=== PATIENT | male | born 1970 | race Caucasian/White ===

== ENCOUNTER 2018-12-09 12:07 | Inpatient (IN) | payer OTHER ==
[~2018-12-09] VITALS: Ht 175.3 cm; Wt 96.3 kg
[2018-12-09 13:37] VITALS: BP 117/79; PULSE 85; TEMP 97.2
[2018-12-09] MEDS ORDERED: HUMALOG100 U/ML SQ (13:45)
[2018-12-09] MEDS ORDERED: LANTUS100 U/ML SQ (13:46)
[2018-12-09] MEDS ORDERED: LIDODERM 5% PATC1 EA TP (13:47)
[2018-12-09] MEDS ORDERED: GLUCOPHAGE1000 MG PO (13:48)
[2018-12-09] MEDS ORDERED: LOPRESSOR 225 MG/TAB PO (13:49)
[2018-12-09] MEDS ORDERED: PEXEVA20 MG PO (13:50)
[2018-12-09] MEDS ORDERED: BACTRIM DS 8001 TAB PO (13:51)
[2018-12-09] MEDS ORDERED: TYLENOL 325MG325 MG PO (13:52)
[2018-12-09] MEDS ORDERED: XANAX .25M0.25 MG/TA PO (13:53)
[2018-12-09] MEDS ORDERED: MELATONIN5 M1 SL (13:54)
[2018-12-09] MEDS ORDERED: ROXICODONE 55 MG/TAB PO (13:55)
[2018-12-09] MEDS ORDERED: ULTRAM 50MG TAB50 MG PO (14:00)
[2018-12-09] MEDS ORDERED: SEROQUEL 2525 MG/TAB PO (14:02)
[2018-12-09 17:33] VITALS: BP 126/72; PULSE 88; TEMP 97.8
--- NOTE | 2018-12-09 19:00 | NUR ---
PT SITTING IN RECLINER. A&O. PLEASANT. PT RELATED HE WAS FAIRLY COMFORTABLE. NO NEED FOR PAIN MEDICATION. NO RESP DISTRESS. LUNG SOUNDS DIMINISHED. OCCASIONAL NONPRODUCTIVE COUGH. TRACH DRSG CDI. HAS SOME NUMBNESS AND TINGLING TO LT F/A.
--- NOTE | 2018-12-09 19:24 | NUR ---
Patient arrived to [facility] this afternoon via private car. This nurse received report from Orlando Islas @ [facility] in [place] [phone]. Patient is A&Ox4. VSS. Will continue to monitor.
[2018-12-10 06:19] VITALS: BP 119/76; PULSE 93; TEMP 98
--- NOTE | 2018-12-10 08:14 | NUR ---
Patient resting in recliner at this time, call light in reach and chair alarm on. Patient refusing SCD's stating that they really bother me and will not wear them.
--- NOTE | 2018-12-10 10:20 | NUR ---
Corrected patient plan of care completing the plan to do daily weights. Patient came over with no orders to continue daily weights. He will be doing weights Mon/Th @ 09 per IPR protocol.
--- NOTE | 2018-12-10 11:33 | NUR ---
Removed tanya to right mid back per orders. Forty four tanya were removed. Some redness to area and slight bleeding where tanya were removed. Call placed to [facility] with wound care, see new orders for Nystatin powder BID to incision site and Aquacel AG over the powder secured with paper tape. Chest tube wound site bandage replaced due to peeling off. The measurements are as follows: 0.4 cm Depth x 2.0 cm L x 0.6 cm W. Area moist due to vasaline gauze dressing. Applied new dressing to area and secured with tegaderm. Will continue to monitor.
--- NOTE | 2018-12-10 13:27 | NUR ---
CAT met with the patient to complete initial intake, as the patient is new to [facility]. The patient lives in [place] with his , Aron (ph#[phone]), and their three sons. He reports independence with ADLs prior to hospitalization and does not have any DME. The patient's PCP is Dr. Nayan Patel and he receives his medications at [facility]. He reports no difficulties obtaining his meds. The patient does not have advanced directives and he was not interested in completing them at this time. CAT to continue to follow to ensure a safe discharge.
--- NOTE | 2018-12-10 17:00 | NUR ---
Removed 40 tanya to left side back incision and observed some redness to the area. Per new orders from [facility] with wound care applied desenex to area and then applied Aquacel AG and secured with paper tape. Chest tube drain site had some clear/vera liquid drainage from site. Area was cleaned and applied vasaline dressing and secured with tegaderm. Will continue to monitor.
[2018-12-10 17:41] VITALS: BP 136/71; PULSE 83; TEMP 98.1
[2018-12-11 06:10] VITALS: BP 139/75; PULSE 91; TEMP 97.9
--- NOTE | 2018-12-11 06:20 | NUR ---
QUIET NIGHT.T SLEPT WELL. NO COMPLAINTS.
--- NOTE | 2018-12-11 08:44 | NUR ---
Report from MARIJA Boone. 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 Takes pills whole with water, refuses SCDs and requests an alernative- will speak to doctor. Glasses in reach, states he does not wear his hearing aids, they are at home. Gripper socks in place.
--- NOTE | 2018-12-11 10:43 | NUR ---
Pt showered with OT. Removed dressings from trach, taj drain tube sites, and taj incisions to back. Moderate vera-yellow drainage from trache site, pt states he isn't whistling much if any, applied aquacel ag gauze, folded gauze 4x4, tegaderm. Taj drain tube sites moderate thin serosanguinous emma drainage and gaping edges, cleansed with iodine swabs, applied new xeroform gauze and tegaderm. Taj linear incisions- scant to small amount of drainage to both, cleansed with iodine swabs, edges not approximated, healing cleft, applied desenex powder to strips of aquacel ag and secured with overlapping layers of paper tape. Dated all dressings. Pt susan well.
--- NOTE | 2018-12-11 11:55 | NUR ---
Pt returned to room from PT.
--- NOTE | 2018-12-11 12:06 | NUR ---
BG 91, ST to eval pt eating, no SSI
[2018-12-11 15:14] VITALS: BP 122/74; PULSE 82; TEMP 98.6
--- NOTE | 2018-12-11 18:09 | NUR ---
Pt susan indep in rm, stressed importance of calling if needing anything or feels unsafe, pt verbalized understanding. Dressings CDI to back, trach. Pt ate 100% x3 today. Verbalizes "PTSD" feelings about accident and encouragement offered. No acute distress. Glasses in reach, using cell phone and has TV on.
--- NOTE | 2018-12-11 20:30 | NUR ---
HS meds all reviewed and given. Accu check 113 and takes strawberry glucerna. Denies pain at this time. Seroquel given to aid with sleep. Scant amount of drainage noted to right inner posterier rib cage incision/powder applied as ordered.
--- NOTE | 2018-12-11 22:07 | NUR ---
Rests quietly in bed. Respirations with ease.
--- NOTE | 2018-12-12 02:37 | NUR ---
Patient has been resting with eyes closed. Respirations with ease.
[2018-12-12 05:58] VITALS: BP 131/76; PULSE 91; TEMP 98.3
--- NOTE | 2018-12-12 07:15 | NUR ---
Patient reports sleep aid worked well. Was sleeping soundly and awakened for med.
--- NOTE | 2018-12-12 14:32 | NUR ---
PT SLEEPING IN RECLINER. WILL GIVEN MEDS AND DO DRESSING CHANGES WHEN HE WAKES UP
[2018-12-12 16:05] VITALS: BP 106/67; PULSE 86; TEMP 98
--- NOTE | 2018-12-12 23:31 | NUR ---
Rests with eyes closed. Respirations with ease.
--- NOTE | 2018-12-13 02:04 | NUR ---
Patient has been resting with eyes closed. Respirations with ease.
[2018-12-13 05:19] VITALS: BP 124/75; PULSE 81; TEMP 97.9
--- NOTE | 2018-12-13 06:18 | NUR ---
Patient awakened for am vitals and meds. Denies pain or needs.
--- NOTE | 2018-12-13 08:15 | NUR ---
Report from MARIJA Caldera. Pt susan indep in room, denies any needs, states he is bored, took meds, watching tv.
--- NOTE | 2018-12-13 11:58 | NUR ---
Walked around surgical desk and IPR perez x3 with nurse without gait belt, steady, held conversation. Jorge Indep in room.
--- NOTE | 2018-12-13 15:06 | NUR ---
Pt ate well at lunch, resting in recliner, awakened, declines pain meds, "twinges" when getting up, to sink for oral cares. Offered to ambulate halls.
[2018-12-13 15:44] VITALS: BP 116/70; PULSE 85; TEMP 98.2
--- NOTE | 2018-12-13 15:45 | NUR ---
Dressings changed x5.
--- NOTE | 2018-12-13 15:53 | NUR ---
Trach site had layout inspector vera drainage and less quantity than on Friday. Cleansed with sterile water on gauze, pt denies any whistling, observed inner epidermis layer healing over with pin point opening. Applied aquacel ag gauze, folded gauze 4x4 and secured with paper tape as surrounding skin irritated with redness. Removed four dressings to back, cleansed with sterile saline on gauze: left drain site had orange clear liquid drainage, applied xeroform gauze with folded 4x4 gauze, right drain site no extra drainage noted, applied xeroform gauze, secured both with tegaderms. Scant drainage to pedro linear incisions, applied desenex powder to aquacel aq gauze strips and secured over incisions with paper tape. Edges are sealing down more with some gaping still present. Pt susan well. Neighbor visiting.
--- NOTE | 2018-12-13 19:24 | NUR ---
Report to MARIJA Villeda.
[2018-12-13 19:33] VITALS: BP 131/68; PULSE 90; TEMP 98.3
--- NOTE | 2018-12-14 04:11 | NUR ---
PT IN BED. NO N/V. INDEPENDENT IN ROOM. PT DENIED NEED FOR PAIN MEDICATION.
[2018-12-14 05:40] VITALS: BP 127/76; PULSE 89; TEMP 98
--- NOTE | 2018-12-14 08:10 | NUR ---
Patient sitting up in recliner eating breakfast. alert and oriented x 3. Shift assessment complete. Dressing to trach site is CDI. Dressing to back incisions are CDI. Previous chest tube site is CDI. Patient denies pain at this time. Independent in room. Denies further needs at this time.
[2018-12-14 16:03] VITALS: BP 117/75; PULSE 83; TEMP 98.5
--- NOTE | 2018-12-14 18:55 | NUR ---
Patient has done well throughout the day, Independent in room. Dressings changed to incisions on back and previous CT sites. Denies pain throughout the day. Denies further needs at this time. Reported off to security shift supervisor.
[2018-12-14 20:53] VITALS: BP 124/75
--- NOTE | 2018-12-14 21:45 | NUR ---
Sitting in recliner. Assessment complete. Lungs diminshed throughout. Heart sounds normal. Bowels active x4. Pulses strong throughout. No edema noted. Bilateral previous chest tube sites and incisions posterior side covered with dressing. Right lower site has scant drainage. Right upper site CDI. Left lower CDI. Left upper scant drainage present. Denies pain at this time. Denies needs. Call light in reach.
--- NOTE | 2018-12-15 00:10 | NUR ---
Resting in bed. Call light in reach.
[2018-12-15 05:53] VITALS: BP 131/70; PULSE 86; TEMP 98.7
--- NOTE | 2018-12-15 06:36 | NUR ---
Patient had uneventful night. Resting in recliner in AM. Denies needs. Call light in reach.
--- NOTE | 2018-12-15 07:28 | NUR ---
Report given to MARIJA Maharaj
--- NOTE | 2018-12-15 15:14 | NUR ---
CAT met with the patient to review the teams recommendation of a discharge for tomorrow, 12/16, with outpatient PT. The patient reports that he is in agreeance to this plan. The patient reports that he would like to receive the outpatient PT at [facility] in [place]. CAT contacted [facility] in [place] (who contracts with [facility]). [facility] reports that their PT will contact the patient to schedule an appointment. CAT will need to fax the patient's orders to [facility] at [phone]. The patient's cell ph#[phone] and his home ph#[phone]. CAT updated the patient's RN, Aleyda, of the above information. SW to continue to follow.
[2018-12-15 19:19] VITALS: BP 130/69; PULSE 93; TEMP 98.3
--- NOTE | 2018-12-15 22:30 | NUR ---
Pt. sitting up in bed at this time. Pt.is A&OX3, assessment complete. Pt. denies pain or other needs, call light within reach.
[2018-12-16 05:49] VITALS: BP 135/80; PULSE 100; TEMP 97.6
[2018-12-16] MEDS ORDERED: Desenex/Lotrimin AF TP (09:27)
[2018-12-16] MEDS ORDERED: SEROQUEL50 MG PO (09:32)
--- NOTE | 2018-12-16 11:00 | NUR ---
Educated and patient on dressing changes to incision sites and to drain sites. completed a dressing change to one incision site and one drain site and discussed any questions or concerns during that training. Dr. Pollack was called and this nurse received orders for patient to have a follow up with ENT following discharge regarding trach site. Patient was educated on dressing changes to care for that site and and patient voiced understanding.
--- NOTE | 2018-12-16 11:23 | NUR ---
The patient is to discharge back home with his family today, 12/16, and outpatient PT at the [facility] through [facility] in [place]. SW contacted and faxed the patient's orders to [facility] in [place]. No additional needs at this time.
--- NOTE | 2018-12-16 11:30 | NUR ---
Patient Health Summary, Discharge Summary, and Home Meds printed and reviewed with patient and . Stressed importance of follow up appointments. Called prescriptions for Paroxetine to pharmacy of choice. Belongings gathered by HENNA/Nataliia including glasses, blothes, phone, battery charger tester, tablet and movies. Patient transported via wheelchair by HENNA/Nataliia and seatbelted for ride home with . Patient denied questions.
--- NOTE | 2018-12-16 14:00 | NUR ---
Received a call from ENT office and patient was set up with an appointment to see Dr. Mejia on 12/22/18 at 10:40 AM for follow up on trach site. Patient was called and notified of this appointment. Patient is to arrive 15 min early to do paper work and to bring in work comp information.
--- NOTE | 2018-12-16 19:36 | NUR ---
Faxed Discharge Orders/summary to Dr. Patel and to [facility].
== END 2018-12-16 11:30 | disposition home or self-care (01) | DRG 559 ==
PROVIDERS: ADMIT Internal Medicine
DX: S22.49XD Multiple fractures of ribs, unspecified side, subsequent encounter for fracture with routine healing (principal); J96.01 Acute respiratory failure with hypoxia; E44.0 Moderate protein-calorie malnutrition; S36.113D Laceration of liver, unspecified degree, subsequent encounter; S27.9XXD Injury of unspecified intrathoracic organ, subsequent encounter; W23.0XXD Caught, crushed, jammed, or pinched between moving objects, subsequent encounter; E11.9 Type 2 diabetes mellitus without complications; R00.0 Tachycardia, unspecified; F41.9 Anxiety disorder, unspecified; F43.10 Post-traumatic stress disorder, unspecified; S27.329D Contusion of lung, unspecified, subsequent encounter; Z68.31 Body mass index [BMI] 31.0-31.9, adult; Z79.4 Long term (current) use of insulin; Z79.891 Long term (current) use of opiate analgesic
CPT/HCPCS: 99232-AI; 99239; J1644; J1815